=== PATIENT | male | born 1975 | race Two or more races ===

== ENCOUNTER 2017-09-12 08:37 | Emergency (ER) | payer SELFPAY ==
[~2017-09-12] VITALS: Ht 167.6 cm; Wt 68.0 kg
[2017-09-12 08:39] VITALS: BP 138/88
--- NOTE | 2017-09-12 09:02 | Emergency Room Report ---
History of Present Illness General Chief Complaint: Seizure Source: EMS Present Illness HPI Patient presents by paramedics for report of possible seizure activity patient was on the street and contacted by bystanders Upon initial arrival the patient is awake verbal however soon after the patient became somewhat somnolent with arousable to physical stimuli Patient is a poor historian He reports that he has had seizures in the past however is not on medications Patient does also admit to drinking alcohol Denies any chest pain or shortness of breath However again the patient soon after arrival became more sleepy and has had somewhat of a limited history Allergies: Coded Allergies: No Known Allergies (Unverified , 09/12/17) Patient History Limited by: medical condition Past Medical History: see triage record Past Surgical History: unable to obtain Pertinent Family History: unable to obtain Reviewed Nursing Documentation: PMH: Agreed, PSxH: Agreed Nursing Documentation-PMH Past Medical History: No History, Except For Hx Seizures: Yes Review of Systems All Other Systems: limited - Other than the ones mentioned in the history of present illness all others are reviewed however they do stay limited due to the patient's mental status Physical Exam Vital Signs Date Time Temp Pulse Resp B/P (MAP) Pulse Ox O2 Delivery O2 Flow Rate FiO2 09/12/17 08:26 98.1 120 18 138/88 95 Room Air Sp02 EP Interpretation: reviewed, normal General Appearance: no apparent distress - However appears disheveled Head: normocephalic, atraumatic Eyes: bilateral eye PERRL, bilateral eye EOMI ENT: normal pharynx, no angioedema Neck: full range of motion, supple Respiratory: lungs clear Cardiovascular #1: regular rate, rhythm, no edema Gastrointestinal: non tender, soft Musculoskeletal: other - Patient does not follow commands makes exam difficult however does localize with both upper extremities, Neurologic: responsive - to physical stimuli Skin: other - Patient appears disheveled with multiple scabbed areas on the upper arm chest and facial region some linear aspects of scabbed in line with likely scabies, Lymphatic: no adenopathy Medical Decision Making Diagnostic Impression: Primary Impression: Breakthrough seizure ER Course Multiple differentials considered Patient's CT head was negative Baseline blood work are appropriate Patient was further hydrated at this time is more awake alert Interactive responding appropriately and stable for close outpatient followup Hemoglobin 11.6 Chemistry normal Rhythm Strip Diag. Results EP Interpretation: yes Rate: 66 Rhythm: NSR, no PVC's CT/MRI/US Diagnostic Results CT/MRI/US Diagnostic Results : Impression CT headImpression: Evidence of prior left convexity craniotomy. Correlate with surgical history Ventriculomegaly and sulcal dilatation, the former somewhat out of proportion to the latter. Most likely on the basis of cerebral volume loss, but the possibility of hydrocephalus also be considered Periventricular deep white matter low attenuation, most likely on the basis of chronic ischemic changes Right frontal and temporal encephalomalacia. Probable small left temporal tip arachnoid cyst Negative for acute intracranial bleed or mass effect Last Vital Signs Date Time Temp Pulse Resp B/P (MAP) Pulse Ox O2 Delivery O2 Flow Rate FiO2 09/12/17 08:39 98.1 18 138/88 95 Room Air 09/12/17 08:39 115 Status: improved Disposition: HOME, SELF-CARE Condition: Improved Scripts Unable to Obtain Active Prescriptions or Reported Meds Additional Instructions: Patient is provided with the discharge instructions notified to follow up with primary doctor in the next 2-3 days otherwise return to the er with any worsening symptoms. Please note that this report is being documented using [employer] technology. This can lead to erroneous entry secondary to incorrect interpretation by the dictating instrument. EYAL CONDON D.O. Sep 12, 2017 09:02
--- NOTE | 2017-09-12 09:22 | Diagnostic Imaging Report ---
Indications: Seizure Technique: Spiral acquisitions obtained through the brain. Angled axial and coronal 5 x 5 mm slices were reconstructed. Total dose length product 1351 mGycm. CTDI vol(s) 70 mGy. Dose reduction achieved using automated exposure control Comparison: None Findings: There is evidence of prior left frontotemporoparietal craniotomy. There is enlargement of the ventricles and to a lesser extent the extra axial CSF spaces. There is encephalomalacia of the right inferior frontal lobe. There is also right anterior and lateral temporal encephalomalacia. There is a small area of focal widening of the extra-axial CSF space in the left anterior middle fossa. There is periventricular deep white matter chronic ischemic change. No acute hemorrhage or edema. No mass effect or midline shift. Impression: Evidence of prior left convexity craniotomy. Correlate with surgical history Ventriculomegaly and sulcal dilatation, the former somewhat out of proportion to the latter. Most likely on the basis of cerebral volume loss, but the possibility of hydrocephalus also be considered Periventricular deep white matter low attenuation, most likely on the basis of chronic ischemic changes Right frontal and temporal encephalomalacia. Probable small left temporal tip arachnoid cyst Negative for acute intracranial bleed or mass effect The CT scanner at [facility] is accredited by the [employer] and the scans are performed using protocols designed to limit radiation exposure to as low as reasonably achievable to attain images of sufficient resolution adequate for diagnostic evaluation.
[2017-09-12] MEDS: LORazepam Inj 2mg/ml 1ml IV ONE (09:45)
[2017-09-12 09:59] LABS: ANION GAP 8 mmol/L (5-15); CALCIUM 9.3 MG/DL (8.5-10.1); CARBON DIOXIDE 29 MMOL/L (21-32); CHLORIDE 101 MMOL/L (98-107); GLOMERULAR FILTRATION RATE > 60 mL/min (>60); POTASSIUM 4.3 MMOL/L (3.5-5.1); SODIUM 138 MMOL/L (136-145)
[2017-09-12 10:03] LABS: ALANINE AMINOTRANSFERASE 26 U/L (12-78); ALBUMIN/GLOBULIN RATIO 0.8 (1.0-2.7); ASPARTATE AMINO TRANSFERASE 39 U/L (15-37); TOTAL PROTEIN 8.9 G/DL (6.4-8.2)
[2017-09-12 10:21] LABS: MEAN CORPUSCULAR HEMOGLOBIN 31.1 PG (27.0-31.0); MEAN CORPUSCULAR HGB CONC 32.5 G/DL (32.0-36.0); MEAN CORPUSCULAR VOLUME 95 FL (80-99); MEAN PLATELET VOLUME 7.4 FL (6.5-10.1); PLATELET COUNT 183 K/UL (150-450); RED BLOOD COUNT 3.73 M/UL (4.70-6.10); RED CELL DISTRIBUTION WIDTH 12.9 % (11.6-14.8); WHITE BLOOD COUNT 6.5 K/UL (4.8-10.8)
[2017-09-12] MEDS: Thiamine 100mg tab ORAL ONE (12:03)
[2017-09-12 12:15] VITALS: BP 158/82
[2017-09-12 12:16] LABS: BAND NEUTROPHILS % (MANUAL) 0 % (0-8); BASOPHILS % (MANUAL) 0 % (0-2); EOSINOPHILS % (MANUAL) 0 % (0-3); HYPOCHROMASIA 1+; LYMPHOCYTES % (MANUAL) 6 % (20-45); NEUTROPHILS % (MANUAL) 92 % (45-75); PLATELET ESTIMATE ADEQUATE; PLATELET MORPHOLOGY NORMAL; TOTAL CELLS COUNTED 100
== END 2017-09-12 12:32 | disposition home or self-care (01) ==
LOC: EDBD 08:37 → EMR 09:00
DX: G40.909 Epilepsy, unspecified, not intractable, without status epilepticus (principal); G93.89 Other specified disorders of brain
CPT/HCPCS: 36415; 70450; 80053; 85007; 85025; 96374; 96375; 99284